=== PATIENT | female | born 1985 | race African-American/Black ===

== ENCOUNTER 2017-11-29 23:28 | Emergency (ER) | payer OTHER, MEDICAID ==
[~2017-11-29] VITALS: Ht 162.6 cm; Wt 65.0 kg
[2017-11-30] MEDS ORDERED: TETRACAINE 0.5% OPHTH DROPS 4ML OP ONE (03:00)
[2017-11-30] MEDS ORDERED: FLUORESCEIN SODIUM 1MG/STRIP OP ONE (03:00)
[2017-11-30] MEDS ORDERED: ACETAMINOPHEN WITH CODEINE 300/30MG TABLET PO ONE (04:00)
[2017-11-30 04:24] VITALS: BP 103/74
== END 2017-11-30 04:46 | disposition home or self-care (01) ==
LOC: ER 23:28
DX: S05.02XA Injury of conjunctiva and corneal abrasion without foreign body, left eye, initial encounter (principal); W22.8XXA Striking against or struck by other objects, initial encounter; Y93.E5 Activity, floor mopping and cleaning; Y92.098 Other place in other non-institutional residence as the place of occurrence of the external cause
CPT/HCPCS: 81025; 99283